=== PATIENT | male | born 1980 ===

== ENCOUNTER 2019-01-27 20:22 | Emergency (ER) | payer SELFPAY ==
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
[2019-01-27 22:36] LABS: Bilirubin,Urine NEG (Negative); Blood,Urine NEG (Negative); Color,Urine Yellow (Yellow); Mucus,Urine 3+ /HPF
--- NOTE | 2019-01-28 00:19 | Ultrasound Report ---
Scrotal ultrasound. 01/27/2019. HISTORY: Testicular pain. FINDINGS: Right testicle measures 4 x 1.9 x 2.9 cm. Left testicle measures 3.9 x 2 x 3 cm. Testicles demonstrate appropriate flow. Negative for mass. Small hydroceles are present. IMPRESSION: Small bilateral hydroceles. Signer Name: Hang Jensen MD Signed: 01/28/2019 12:15 AM Workstation Name: [id number]
[2019-01-28] MEDS ORDERED: LIDOCAINE-MPF (1%) 10 MG/1 ML VIAL 5 ML INFILTRATI ONE (00:47)
[2019-01-28] MEDS ORDERED: AZITHROMYCIN 1 GM ORAL PWDR PACKET PO ONE (00:47)
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
[2019-01-28 01:29] VITALS: BP 118/53
== END 2019-01-28 01:38 | disposition home or self-care (01) ==
LOC: ED 20:22
DX: N43.2 Other hydrocele (principal); F17.200 Nicotine dependence, unspecified, uncomplicated; F12.10 Cannabis abuse, uncomplicated; Z20.2 Contact with and (suspected) exposure to infections with a predominantly sexual mode of transmission; Z98.890 Other specified postprocedural states; Z79.899 Other long term (current) drug therapy
CPT/HCPCS: 81001; 93975; 96372; 99284; J0696

== ENCOUNTER 2020-03-27 13:18 | Emergency (ER) | payer SELFPAY ==
[2020-03-27 14:14] VITALS: BP 126/99
--- NOTE | 2020-03-27 14:29 | Emergency Department Report ---
ED General Adult HPI - General Chief complaint: Urogenital-Male Stated complaint: VOMITTING/ABDONAL PAIN Time Seen by Provider: 03/27/20 14:25 Source: patient Mode of arrival: Ambulatory Limitations: No Limitations - History of Present Illness Initial comments: Patient is a 39-year-old male who presents emergency room complaints of generalized abdominal discomfort for couple days. He has associated nausea and intermittent vomiting. He is tolerating p.o. intake. He denies any dysuria, urinary symptoms, diarrhea, hematochezia, melena, hematemesis. He states he had a normal bowel movement last night. He states he has a past medical history of urinary retention and previously used to see a urologist and he has a history of a left inguinal hernia repair. No allergies to medications. 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 He denies any recent antibiotics. - Related Data Previous Rx's Medication Instructions Recorded Last Taken Type Valacyclovir HCl [Valtrex] 1,000 mg PO BID #20 tablet 01/28/19 Unknown Rx Cyclobenzaprine [Flexeril] 10 mg PO QHS PRN #20 tablet 04/04/19 Unknown Rx Ibuprofen [Motrin 800 MG tab] 800 mg PO Q8HR PRN #30 tablet 04/04/19 Unknown Rx Famotidine [Pepcid] 40 mg PO QHS #30 tablet 03/27/20 Unknown Rx Ondansetron [Zofran Odt] 4 mg PO Q8HR PRN #7 tab.rapdis 03/27/20 Unknown Rx Sucralfate [Carafate] 1 gm PO ACHS 7 Days #21 tablet 03/27/20 Unknown Rx Allergies Allergy/AdvReac Type Severity Reaction Status Date / Time No Known Allergies Allergy Unverified 01/27/19 20:58 ED Review of Systems ROS: Stated complaint: VOMITTING/ABDONAL PAIN Other details as noted in HPI Comment: All other systems reviewed and negative ED Past Medical Hx - Past Medical History Previous Medical History?: Yes Additional medical history: RECURRENT URINARY PROBLEMS SINCE LEFT INGUINAL ALEC IA REPAIR [id number] - Surgical History Past Surgical History?: Yes Additional Surgical History: Left groin hernia. - Social History Smoking Status: Never Smoker Substance Use Type: None - Medications Home Medications: Home Medications Medication Instructions Recorded Confirmed Last Taken Type Valacyclovir HCl [Valtrex] 1,000 mg PO BID #20 tablet 01/28/19 Unknown Rx Cyclobenzaprine [Flexeril] 10 mg PO QHS PRN #20 tablet 04/04/19 Unknown Rx Ibuprofen [Motrin 800 MG tab] 800 mg PO Q8HR PRN #30 tablet 04/04/19 Unknown Rx Famotidine [Pepcid] 40 mg PO QHS #30 tablet 03/27/20 Unknown Rx Ondansetron [Zofran Odt] 4 mg PO Q8HR PRN #7 tab.rapdis 03/27/20 Unknown Rx Sucralfate [Carafate] 1 gm PO ACHS 7 Days #21 tablet 03/27/20 Unknown Rx ED Physical Exam - General Limitations: No Limitations General appearance: alert, in no apparent distress - Head Head exam: Present: atraumatic, normocephalic - Eye Eye exam: Present: normal appearance - ENT ENT exam: Present: mucous membranes moist - Respiratory Respiratory exam: Present: normal lung sounds bilaterally. Absent: respiratory distress, wheezes, rales, rhonchi, stridor, chest wall tenderness, accessory muscle use, decreased breath sounds, prolonged expiratory - Cardiovascular Cardiovascular Exam: Present: regular rate, normal rhythm, normal heart sounds. Absent: systolic murmur, diastolic murmur, rubs, gallop - GI/Abdominal GI/Abdominal exam: Present: soft, normal bowel sounds. Absent: distended, tenderness, guarding, rebound, rigid, mass, hernia - Neurological Exam Neurological exam: Present: alert, oriented X3 - Psychiatric Psychiatric exam: Present: normal affect, normal mood - Skin Skin exam: Present: warm, dry, intact ED Course Vital Signs 03/27/20 14:06 Temperature 98 F Pulse Rate 58 L Respiratory 18 Rate Blood Pressure 126/99 O2 Sat by Pulse 100 Oximetry ED Medical Decision Making - Lab Data Result diagrams: 03/27/20 15:00 03/27/20 15:00 Labs 03/27/20 03/27/20 03/27/20 15:00 15:00 Unknown WBC 9.6 RBC 4.73 Hgb 14.8 Hct 44.3 MCV 94 MCH 31 MCHC 33 RDW 14.3 Plt Count 263 Lymph % (Auto) 30.0 [place] % (Auto) 6.7 Eos % (Auto) 0.6 Baso % (Auto) 0.4 Lymph # (Auto) 2.9 [place] # (Auto) 0.6 Eos # (Auto) 0.1 Baso # (Auto) 0.0 Seg Neutrophils % 62.3 Seg Neutrophils # 6.0 Sodium 140 Potassium 4.5 Chloride 103.6 Carbon Dioxide 30 Anion Gap 11 BUN 8 L Creatinine 1.0 Estimated GFR > 60 BUN/Creatinine Ratio 8 Glucose 123 H Calcium 9.2 Total Bilirubin 0.20 AST 20 ALT 10 Alkaline Phosphatase 78 Total Protein 6.9 Albumin 4.7 Albumin/Globulin Ratio 2.1 Lipase 26 Urine Color Yellow Urine Turbidity Clear Urine pH 5.0 Ur Specific [place] 1.025 Urine Protein <15 mg/dl Urine Glucose (UA) Neg Urine Ketones Neg Urine Blood Neg Urine Nitrite Neg Urine Bilirubin Neg Urine Urobilinogen 2.0 Ur Leukocyte Esterase Neg Urine WBC (Auto) 1.0 Urine RBC (Auto) 1.0 Urine Mucus 2+ - Medical Decision Making Patient is a 39-year-old male who presents emergency room complaints of generalized abdominal discomfort for couple days. He has associated nausea and intermittent vomiting. He is tolerating p.o. intake. He denies any dysuria, urinary symptoms, diarrhea, hematochezia, melena, hematemesis. He states he had a normal bowel movement last night. He states he has a past medical history of urinary retention and previously used to see a urologist and he has a history of a left inguinal hernia repair. No allergies to medications. 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 He denies any recent antibiotics. Vitals are stable. No abdominal tenderness on exam, no guarding, no rebound, no rigidity, normal bowel sounds, no peritoneal signs. Labs are stable. UA is within normal limits. Do not suspect acute emergent intra-abdominal pathology at this time. Symptoms likely related to GERD versus PUD versus gastritis. He is tolerating p.o. intake without difficulty. Patient given prescription for Carafate, Pepcid, Zofran. Advised patient Please take medication as prescribed. Increase your water intake. Follow-up with your primary care doctor. Follow- up with a GI doctor. Eat a bland liquid diet and slowly advance your diet as tolerated. Return to emergency room for any new or worsening symptoms. Critical care attestation.: If time is entered above; I have spent that time in minutes in the direct care o f this critically ill patient, excluding procedure time. ED Disposition Clinical Impression: Nausea, Intermittent vomiting Abdominal pain Qualifiers: Abdominal location: generalized Qualified Code(s): R10.84 - Generalized abdominal pain Disposition: - TO HOME OR SELFCARE Is pt being admited?: No Does the pt Need Aspirin: No Condition: Stable Instructions: Heartburn, [id number], Gastritis, Adult Additional Instructions: Please take medication as prescribed. Increase your water intake. Follow-up with your primary care doctor. Follow-up with a GI doctor. Eat a bland liquid diet and slowly advance your diet as tolerated. Return to emergency room for any new or worsening symptoms. Prescriptions: Famotidine [Pepcid] 40 mg PO QHS #30 tablet Sucralfate [Carafate] 1 gm PO ACHS 7 Days #21 tablet Ondansetron [Zofran Odt] 4 mg PO Q8HR PRN #7 tab.rapdis PRN Reason: Nausea And Vomiting Referrals: PRIMARY MD TIEN [Primary Care Provider] - 2-3 Days HERNANEDZ MICHELLE MD [Staff Physician] - 2-3 Days [facility] [Provider Group] - 2-3 Days [facility] [Provider Group] - 2-3 Days Forms: Work/School Release Form(ED) Time of Disposition: 15:36 Print Language: [place]
[2020-03-27 15:12] LABS: Basophils % (Auto) 0.4 % (0.0-1.8); Eosinophils # (Auto) 0.1 K/mm3 (0.0-0.4); Eosinophils % (Auto) 0.6 % (0.0-4.3); Hematocrit 44.3 % (35.5-45.6); Hemoglobin 14.8 gm/dl (11.8-15.2); Lymphocytes # (Auto) 2.9 K/mm3 (1.2-5.4); Mean Corpuscular HGB Conc 33 % (32-34); Mean Corpuscular Volume 94 fl (84-94); Monocytes # (Auto) 0.6 K/mm3 (0.0-0.8); Monocytes % (Auto) 6.7 % (0.0-7.3); Platelet Count 263 K/mm3 (140-440); Red Blood Count 4.73 M/mm3 (3.65-5.03); Red Cell Distribution Width 14.3 % (13.2-15.2)
[2020-03-27 15:21] LABS: Bilirubin,Urine NEG (Negative); Blood,Urine NEG (Negative); Color,Urine Yellow (Yellow); Mucus,Urine 2+ /HPF; Protein,Urine <15 mg/dL mg/dL (Negative)
[2020-03-27 15:29] LABS: Alanine Aminotransferase 10 units/L (7-56); Albumin 4.7 g/dL (3.9-5); BUN/Creatinine Ratio 8; Blood Urea Nitrogen 8 mg/dL (9-20); Calcium 9.2 mg/dL (8.4-10.2); Hemolysis Index 6
== END 2020-03-27 15:59 | disposition home or self-care (01) ==
LOC: ED 13:18
DX: R10.84 Generalized abdominal pain (principal); R11.2 Nausea with vomiting, unspecified; Z79.899 Other long term (current) drug therapy; Z98.890 Other specified postprocedural states
CPT/HCPCS: 36415; 80053; 81001; 83690; 85025